=== PATIENT | male | born 1990 | race Asian ===

== ENCOUNTER 2024-08-27 06:31 | Emergency (ER) | payer MEDICAID ==
[~2024-08-27] VITALS: Ht 162.6 cm; Wt 68.0 kg
[2024-08-27 06:37] VITALS: TEMP 98.4
[2024-08-27 06:50] LABS: COVID AG,FIA SOURCE NASAL SWAB
[2024-08-27] MEDS ORDERED: KETOROLAC TROMETHAMINE 30 MG/ML VIAL IVP ONE (07:00)
[2024-08-27 07:18] LABS: BASOPHILS % (AUTO) 0.9 % (0.0-2.0); EOSINOPHILS % (AUTO) 1.8 % (1.0-6.0); HEMATOCRIT 48.4 % (41-53); HEMOGLOBIN 16.2 g/dL (13.5-17.5); LYMPHOCYTES # (AUTO) 1.4 K/uL (1.0-4.8); LYMPHOCYTES % (AUTO) 24.8 % (22.0-44.0); MEAN CORPUSCULAR HEMOGLOBIN 30.1 pg (26.0-34.0); MEAN CORPUSCULAR HGB CONC 33.5 G/dL (31.0-37.0); MEAN CORPUSCULAR VOLUME 90 fL (80-100); MONOCYTES # (AUTO) 0.5 K/uL (0.1-1.0); MONOCYTES % (AUTO) 7.9 % (2.0-9.0); NEUTROPHILS # (AUTO) 3.7 K/uL (1.8-7.7); NEUTROPHILS % (AUTO) 64.6 % (40.0-70.0); PLATELET COUNT (AUTO) 271 K/uL (150-450); WHITE BLOOD COUNT (AUTO) 5.8 K/uL (4.5-11.0)
[2024-08-27] MEDS: SODIUM CHLORIDE 0.9% 1,000 ML IV ONE (07:24)
[2024-08-27] MEDS: FAMOTIDINE 20 MG/2 ML VIAL IVP ONE (07:24)
[2024-08-27] MEDS: MAG HYDROX/ALUMINUM HYD/SIMETH 30 ML SUSPENSION UDCUP PO ONE (07:24)
[2024-08-27] MEDS: ONDANSETRON HCL 4 MG/2 ML VIAL IVP ONE (07:24)
[2024-08-27 07:26] LABS: SARS-COV2 (COVID) ANTIGEN,FIA Negative (Negative)
[2024-08-27] MEDS: KETOROLAC TROMETHAMINE 15 MG/ML VIAL IVP ONE (07:26)
[2024-08-27 07:39] LABS: B-TYPE NATRIURETIC PEPTIDE 8 pg/mL (0-100)
[2024-08-27 07:42] LABS: INFLUENZA TYPE A NEGATIVE FOR TYPE A (NEGATIVE); INFLUENZA TYPE B NEGATIVE FOR TYPE B (NEGATIVE)
[2024-08-27 07:44] LABS: TROPONIN I-HIGH SENSITIVITY 4 ng/L (<76)
[2024-08-27 07:51] LABS: ANION GAP 9 mmol/L (8-16); CALCIUM, TOTAL 8.5 mg/dL (8.8-10.5); CARBON DIOXIDE 24 mmol/L (22-29); CHLORIDE 104 mmol/L (98-107); CREATININE 1.34 mg/dL (0.60-1.30); GLOMERULAR FILTR. RATE CALC > 60 mL/min (>60); GLUCOSE,RANDOM 96 mg/dL (70-110); POTASSIUM 3.8 mmol/L (3.5-5.1); SODIUM SERUM 137 mmol/L (136-145); UREA NITROGEN, BLOOD 10 mg/dL (7-18)
[2024-08-27 07:58] LABS: ALANINE AMINOTRANSFERASE 16 U/L (12-78); ALBUMIN 4.3 g/dL (3.4-5.0); ALKALINE PHOSPHATASE 46 U/L (46-116); ASPARTATE AMINOTRANSFERASE 15 U/L (15-37); LIPASE 23 U/L (16-77); TOTAL PROTEIN, SERUM 7.7 g/dL (6.4-8.2)
[2024-08-27] MEDS ORDERED: ONDA-104 PO (08:07)
[2024-08-27 08:30] VITALS: BP 129/79; PULSE 66; RESP 16; O2SAT 100
== END 2024-08-27 08:30 | disposition home or self-care (01) ==
LOC: EMS 06:31
DX: R11.2 Nausea with vomiting, unspecified (principal); R06.02 Shortness of breath; F12.90 Cannabis use, unspecified, uncomplicated; Z20.822 Contact with and (suspected) exposure to COVID-19
CPT/HCPCS: 99285; 96374; 96375; 71045; 96361; 87426; 80048; 80076; 83690; 83880; 84484; 85025; 87804; 36415; 93005; J3490; J1885; J2405; J7030